=== PATIENT | male | born 1975 | race American Indian/Alaskan Native ===

== ENCOUNTER 2017-07-12 11:53 | Emergency (ER) | payer MEDICAID ==
[2017-07-12 11:53] VITALS: BMI 27.4
[2017-07-12 12:01] VITALS: BP 114/73; PULSE 67; RESP 20; TEMP 98.1; O2SAT 98
--- NOTE | 2017-07-12 13:20 | RAD ---
PROCEDURE: Radiographs of the Right Shoulder HISTORY: atraumatic pain/muscle spasm/h/o shoulder sx COMPARISON: No prior. FINDINGS: BONES: Bone alignment and mineralization are normal. No acute fracture. JOINTS: Normal. Glenohumeral and acromioclavicular joints preserved. No osteoarthritis. SOFT TISSUES: Normal. OTHER FINDINGS: None. IMPRESSION: No acute fracture or dislocation.
--- NOTE | 2017-07-12 13:23 | C.PDOC ---
History Of Present Illness 41 y/o male presents to the ED complaining of right shoulder pain radiating down the arm, ongoing for the past several months. Patient states he feels swelling near the posterior and superior shoulder. No injuries or blunt trauma to the area. Reports that in 2003 he had laparoscopic shoulder surgery for inflammation. Pain has been progressively worsening, prompting him to come in today for further evaluation. No numbness, paresthesias, or focal weakness. Time Seen by Provider: 07/12/17 12:21 Chief Complaint (Nursing): Upper Extremity Problem/Injury History Per: Patient History/Exam Limitations: no limitations Onset/Duration Of Symptoms: Waxing/Waning Current Symptoms Are (Timing): Worse Past Medical History Reviewed: Historical Data, Nursing Documentation, Vital Signs Vital Signs: Last Vital Signs Temp 98.1 F 07/12/17 12:00 Pulse 67 07/12/17 12:00 Resp 20 07/12/17 12:00 BP 114/73 07/12/17 12:00 Pulse Ox 98 07/12/17 12:00 - Medical History PMH: No Chronic Diseases Denies: Depression Other Surgeries: Right shoulder surgery - [facility] Procedures APPLICATION OF SPLINT (09/19/13) CLOSURE SKIN & SUBCUTANEOUS NEC (02/15/13) IMMOBILIZ/WOUND ATTN NEC (02/15/13) INJECT/INFUSE NEC (10/14/14) REMOV THERAPEUT DEV NEC (03/05/13) SHOULDER ARTHROPLAST NEC (05/08/03) TETANUS TOXOID ADMINIST (02/15/13) Family History: States: No Known Family Hx - Social History Hx Tobacco Use: Yes (6-7 per day) Hx Alcohol Use: Yes Hx Substance Use: No - Immunization History Hx Tetanus Toxoid Vaccination: No Hx Influenza Vaccination: No Hx Pneumococcal Vaccination: No Review Of Systems Except As Marked, All Systems Reviewed And Found Negative. Musculoskeletal: Positive for: Shoulder Pain (right) Neurological: Negative for: Weakness, Numbness (and tingling) Physical Exam - Physical Exam Appears: Non-toxic, No Acute Distress Skin: Normal Color, Warm, Dry, No Rash Back: No Vertebral Tenderness, Muscle Spasm (to the right deltoid and trapezius) Extremity: No Deformity (of right shoulder), No Swelling (or erythema), Other ( Decreased ROM of right shoulder secondary to pain; Distal to shoulder there is no tenderness, wasted muscles, or obvious bony deformity) Pulses: Left Radial: Normal, Right Radial: Normal Neurological/Psych: Oriented x3, Normal Speech, Normal Motor, Normal Sensation, No Other (focal deficits) ED Course And Treatment O2 Sat by Pulse Oximetry: 98 (RA) Pulse Ox Interpretation: Normal - Other Rad x-ray right shoulder X-Ray: Viewed By Me, Read By Radiologist Interpretation: FINDINGS: BONES: Bone alignment and mineralization are normal. No acute fracture. JOINTS: Normal. Glenohumeral and acromioclavicular joints preserved. No osteoarthritis. SOFT TISSUES: Normal. OTHER FINDINGS: None. IMPRESSION: No acute fracture or dislocation. Progress Note: Patient informed of normal x-ray results. Disposition - Disposition - PA / BOX SPINNER / Resident Statement MD/DO has reviewed & agrees with the documentation as recorded. - Scribe Statement The provider has reviewed the documentation as recorded by the Scribe (Awilda Wood) All medical record entries made by the Scribe were at my direction and personally dictated by me. I have reviewed the chart and agree that the record accurately reflects my personal performance of the history, physical exam, medical decision making, and the department course for this patient. I have also personally directed, reviewed, and agree with the discharge instructions and disposition.
--- NOTE | 2017-07-12 13:36 | C.PDOC ---
History Of Present Illness 41 y/o male presents to the ED complaining of right shoulder pain radiating down the arm, ongoing for the past several months. Patient states he feels swelling near the posterior and superior shoulder. No injuries or blunt trauma to the area. Reports that in 2003 he had laparoscopic shoulder surgery for inflammation. Pain has been progressively worsening, prompting him to come in today for further evaluation. No numbness, paresthesias, or focal weakness. Time Seen by Provider: 07/12/17 12:21 Chief Complaint (Nursing): Upper Extremity Problem/Injury History Per: Patient History/Exam Limitations: no limitations Onset/Duration Of Symptoms: Waxing/Waning Current Symptoms Are (Timing): Worse Past Medical History Reviewed: Historical Data, Nursing Documentation, Vital Signs Vital Signs: Last Vital Signs Temp 98.1 F 07/12/17 12:00 Pulse 67 07/12/17 12:00 Resp 20 07/12/17 12:00 BP 114/73 07/12/17 12:00 Pulse Ox 98 07/12/17 13:39 - Medical History PMH: No Chronic Diseases Denies: Depression Other Surgeries: Right shoulder surgery - [facility] Procedures APPLICATION OF SPLINT (09/19/13) CLOSURE SKIN & SUBCUTANEOUS NEC (02/15/13) IMMOBILIZ/WOUND ATTN NEC (02/15/13) INJECT/INFUSE NEC (10/14/14) REMOV THERAPEUT DEV NEC (03/05/13) SHOULDER ARTHROPLAST NEC (05/08/03) TETANUS TOXOID ADMINIST (02/15/13) Family History: States: No Known Family Hx - Social History Hx Tobacco Use: Yes (6-7 per day) Hx Alcohol Use: Yes Hx Substance Use: No - Immunization History Hx Tetanus Toxoid Vaccination: No Hx Influenza Vaccination: No Hx Pneumococcal Vaccination: No Review Of Systems Except As Marked, All Systems Reviewed And Found Negative. Musculoskeletal: Positive for: Shoulder Pain (right) Neurological: Negative for: Weakness, Numbness (and tingling) Physical Exam - Physical Exam Appears: Non-toxic, No Acute Distress Skin: Normal Color, Warm, Dry Back: No Vertebral Tenderness, Muscle Spasm (to the right deltoid and trapezius) Extremity: No Deformity (of right shoulder), No Swelling (or erythema), Other ( Decreased ROM of right shoulder secondary to pain; Distal to shoulder there is no tenderness, wasted muscles, or obvious bony deformity) Pulses: Left Radial: Normal, Right Radial: Normal Neurological/Psych: Oriented x3, Normal Speech, Normal Motor, Normal Sensation, No Other (focal deficits) ED Course And Treatment O2 Sat by Pulse Oximetry: 98 (RA) Pulse Ox Interpretation: Normal - Other Rad x-ray right shoulder X-Ray: Viewed By Me, Read By Radiologist Interpretation: FINDINGS: BONES: Bone alignment and mineralization are normal. No acute fracture. JOINTS: Normal. Glenohumeral and acromioclavicular joints preserved. No osteoarthritis. SOFT TISSUES: Normal. OTHER FINDINGS: None. IMPRESSION: No acute fracture or dislocation. Progress Note: Patient informed of normal x-ray results. Disposition - Disposition Referrals: Mickie Dye MD [Staff Provider] - Disposition: HOME/ ROUTINE Disposition Time: 14:04 Condition: STABLE Additional Instructions: Follow up with Orthopedist within 1-2 days. Return to ED if feel worse. Prescriptions: Cyclobenzaprine [Cyclobenzaprine HCl] 10 mg PO TID #15 tab Lidocaine 5% [Lidoderm] 1 patch TP DAILY #30 patch Ibuprofen [Motrin Tab] 600 mg PO Q8 #30 tab Instructions: Shoulder Pain (DC) Forms: [employer] (E[place]ian) - Clinical Impression Clinical Impression: Shoulder pain - PA / TRAFFIC ATTENDANT / Resident Statement MD/DO has reviewed & agrees with the documentation as recorded. - Scribe Statement The provider has reviewed the documentation as recorded by the Scribe (Awilda Wood) All medical record entries made by the Scribe were at my direction and personally dictated by me. I have reviewed the chart and agree that the record accurately reflects my personal performance of the history, physical exam, medical decision making, and the department course for this patient. I have also personally directed, reviewed, and agree with the discharge instructions and disposition.
[2017-07-12] MEDS ORDERED: Lidocaine 5% Patch TD STA (13:42)
[2017-07-12] MEDS ORDERED: Lidocaine 5% Patch TD ONE (13:57)
== END 2017-07-12 14:12 | disposition home or self-care (01) ==
LOC: C.ER 11:53
DX: M25.511 Pain in right shoulder (principal)